=== PATIENT | female | born 1990 | race Caucasian/White ===

== ENCOUNTER 2018-12-08 00:49 | Emergency (ER) | payer SELFPAY ==
[2018-12-08 01:05] VITALS: O2SAT 98
--- NOTE | 2018-12-08 02:08 | ED PDOC ---
HPI: Psych/Substance Abuse Time Seen by Provider: 12/08/18 01:15 Chief Complaint (Nursing): Alcohol Ingestion Chief Complaint (Provider): Alcohol Ingestion ED Caveat: Intoxicated History Per: Patient, EMS History/Exam Limitations: no limitations Current Symptoms Are (Timing): Still Present Modifying Factor(s): Alcohol Additional Complaint(s): 28 year old female presents to the ED via EMS for evaluation of alcohol intoxication. Patient arrived to the ED ambulating with steady gait. Once in a bed, she became somnolent. Offers no medical complaints. PMD: none provided Past Medical History Reviewed: Historical Data, Nursing Documentation, Vital Signs, Unable To Obtain Vital Signs: Last Vital Signs Temp 97 F L 12/08/18 01:04 Pulse 68 12/08/18 01:04 Resp 16 12/08/18 01:04 BP 126/74 12/08/18 01:04 Pulse Ox 98 12/08/18 01:04 - Allergies Allergies/Adverse Reactions: Allergies Allergy/AdvReac Type Severity Reaction Status Date / Time Unobtainable Allergy Verified 12/08/18 01:05 Review of Systems Review Of Systems: ROS cannot be obtained secondary to pt's inabilty to answer questions. Physical Exam - Reviewed Nursing Documentation Reviewed: Yes Vital Signs Reviewed: Yes - Physical Exam Head Exam: Positive for: ATRAUMATIC, NORMAL INSPECTION, NORMOCEPHALIC Skin: Positive for: Normal Color, Warm, Dry Cardiovascular/Chest: Positive for: Regular Rate, Rhythm. Negative for: Murmur Respiratory: Positive for: Normal Breath Sounds. Negative for: Wheezing, Respiratory Distress Extremity: Positive for: Normal ROM (upper and lower extremities). Negative for: Deformity - ECG O2 Sat by Pulse Oximetry: 98 (RA) Pulse Ox Interpretation: Normal Medical Decision Making Medical Decision Makin:38 Impression: 28 year old female with alcohol intoxication Initial Plan: --Alcohol --UDS --Urine preg --Urine dip --Accucheck 06:10 Patient is clinically sober for discharge. She is ambulating with a steady gait and clear speech. Scribe Attestation: Documented by Shanna Wheat, acting as a scribe Roseann Jeff MD. Provider Scribe Attestation: All medical record entries made by the Scribe were at my direction and personally dictated by me. I have reviewed the chart and agree that the record accurately reflects my personal performance of the history, physical exam, medical decision making, and the department course for this patient. I have also personally directed, reviewed, and agree with the discharge instructions and disposition. Disposition - Clinical Impression Clinical Impression: Alcohol use - Patient ED Disposition Is Patient to be Admitted: No - Disposition Disposition: Routine/Home Disposition Time: 06:10 Condition: STABLE Instructions: Effects of Alcohol on Your Health Forms: [facility] (Pashto)
[2018-12-08 06:38] VITALS: BP 126/72; PULSE 88; RESP 20; TEMP 98
== END 2018-12-08 06:10 | disposition home or self-care (01) ==
LOC: H.ER 00:49
DX: Y90.8 Blood alcohol level of 240 mg/100 ml or more (principal)
CPT/HCPCS: 82948; 99283; G0480